=== PATIENT | male | born 1940 | race Caucasian/White ===

== ENCOUNTER 2020-08-19 16:26 | Outpatient (CLI) | payer MEDICARE, BC ==
[2020-06-15 11:40] LABS: Anion Gap 14 mmol/L (10-20); BUN (Urea Nitrogen) 16 mg/dL (8.4-25.7); Calc. Creatinine Clearance 0 mL/min (70-130); Calcium 8.7 mg/dL (7.8-10.44); Carbon Dioxide 24 mmol/L (23-31); Chloride 104 mmol/L (98-107); Glucose 102 mg/dL (83-110); Potassium 4.3 mmol/L (3.5-5.1); Sodium 138 mmol/L (136-145)
[2020-06-15 11:57] LABS: Hemoglobin 10.2 g/dL (14.0-18.0); Mean Corpuscular HGB CONC 28.7 G/DL (32.0-36.0); Mean Corpuscular Hemoglobin 19.7 PG (27.0-33.0); Mean Corpuscular Volume 68.4 fl (80.0-100.0); Mean Platelet Volume 9.3 fl (7.4-10.4); Platelet Count 199 10x3/uL (130-400); RBC Distribution Width 19.9 % (11.5-14.5); Red Blood Cell (RBC) Count 5.19 10x6/uL (4.40-5.80); White Blood Cell (WBC) Count 4.4 10x3/uL (4.5-11.0)
[2020-06-15 12:24] LABS: Prothrombin Time 10.4 sec (9.5-12.1)
[2020-06-16 02:43] LABS: SARS-CoV-2 PCR by NAA Not Detected (NotDetected)
[2020-08-19 17:06] LABS: Hemoglobin 11.9 g/dL (13.5-17.5); Mean Corpuscular Hemoglobin 20.1 pg (27.0-33.0); Mean Corpuscular Volume 69.5 fl (81.2-95.1); Mean Platelet Volume 9.3 fl (7.4-10.4); Platelet Count 218 10x3/uL (150-450); RBC Distribution Width 19.1 % (11.5-14.5); Red Blood Cell (RBC) Count 5.91 10x6/uL (4.32-5.72)
[2020-08-19 17:16] LABS: Anion Gap 15 mmol/L (10-20); BUN (Urea Nitrogen) 21 mg/dL (8.4-25.7); Calc. Creatinine Clearance 0 mL/min (70-130); Calcium 8.7 mg/dL (7.8-10.44); Carbon Dioxide 24 mmol/L (23-31); Chloride 102 mmol/L (98-107); Glucose 93 mg/dL (83-110); Potassium 4.4 mmol/L (3.5-5.1); Sodium 137 mmol/L (136-145)
[2020-08-19 17:21] LABS: INR-International Normal Ratio 0.9; Prothrombin Time 10.5 sec (9.5-12.1)
[2020-08-20 01:57] LABS: SARS-CoV-2 PCR by NAA Not Detected (NotDetected)
== END 2020-08-19 16:27 | disposition home or self-care (01) ==
LOC: CSHLAB 16:26
PROVIDERS: ATTEND Internal Medicine Cardiovascular Disease
DX: Z01.812 Encounter for preprocedural laboratory examination (principal); Z20.822 Contact with and (suspected) exposure to COVID-19; I48.19 Other persistent atrial fibrillation
CPT/HCPCS: 80048; 85027; 85610; 87635; U0003; U0005

== ENCOUNTER 2020-08-22 06:11 | Day surgery (SDC) | payer MEDICARE, BC ==
[2020-08-22] MEDS ORDERED: PROPOFOL 20 ML ONE (07:01)
[2020-08-22 07:19] VITALS: BP 140/92; TEMP 98.2
[2020-08-22 10:20] VITALS: BMI 30.7
== END 2020-08-22 08:30 | disposition home or self-care (01) ==
LOC: CSHSDC 06:11
PROVIDERS: ATTEND Internal Medicine Cardiovascular Disease
DX: I48.91 Unspecified atrial fibrillation (principal); I25.10 Atherosclerotic heart disease of native coronary artery without angina pectoris; I25.2 Old myocardial infarction; Z95.1 Presence of aortocoronary bypass graft; I10 Essential (primary) hypertension; J44.9 Chronic obstructive pulmonary disease, unspecified; G47.33 Obstructive sleep apnea (adult) (pediatric); E03.9 Hypothyroidism, unspecified; F41.9 Anxiety disorder, unspecified; E78.5 Hyperlipidemia, unspecified
CPT/HCPCS: 92960; 93005; 93010; J2704